=== PATIENT | female | born 1955 | race African-American/Black ===

== ENCOUNTER 2018-04-05 20:17 | Emergency (ER) | payer MEDICARE ==
[~2018-04-05] VITALS: Ht 162.6 cm; Wt 115.0 kg
[~2018-04-05 20:17] MED LIST: AMBIEN5 MG PO; AMLODIPINE5 MG OR; COLCRYS0.6 MG PO; DILTIAZEM180 MG OR; FLEXERIL OR; FLEXERIL PO; INDOMETHACIN50 MG PO; KLOR-CON 1010 ME1 OR; LISINOP/HCTZ1 TAB PO; LORTAB5 PO; MELATONIN3 MG PO; MELOXICAM15 MG PO; METFORMIN1000 MG OR; MULTIVITAM10 OR; NABUMETONE750 MG PO; NAPROSYN500 MG PO; NEXIUM40 MG PO; NORVASC10 M1 PO; NORVASC5 M1 PO; NORVASC5 MG PO; OMEPRAZOLE40 MG PO; PRAVACHOL20 MG OR; PRILOSEC40 MG PO; TRANSDERM-SCOP1.5 MG TD
[2018-04-05] MEDS ORDERED: STOMACH PILL (20:53)
[2018-04-05 21:33] LABS: HEMATOCRIT 32.7 % (37.0-47.0); HEMOGLOBIN 11.2 g/dl (12.0-16.0); IMMATURE GRANULOCYTES 0.3 % (0.0-1.0); MEAN CORPUSCULAR HGB 31.2 pG CALC (26.0-32.0); MEAN CORPUSCULAR HGB CONC 34.3 g/L CALC (32.0-36.0); NEUT# 4.49 thou/uL (2.00-7.15); RED BLOOD COUNT 3.59 mill/uL (4.20-5.60); RED CELL DISTRI WIDTH 14.3 % (11.5-15.5)
[2018-04-05 21:35] LABS: MEAN CELL VOLUME 91.1 fL CALC (80.0-100.0)
[2018-04-05 21:44] LABS: ALKALINE PHOSPHATASE 91 u/l (38-126); AMYLASE 84 u/l (30-110); ANION GAP 11 (6-22 (CALC)); BILIRUBIN, TOTAL 0.4 mg/dL (0.0-1.4); BUN 20 mg/dL (8-23); BUN/CREATININE RATIO 21 (12-20 (CALC)); CARBON DIOXIDE 28 mmol/l (22-30); CHLORIDE 105 mmol/l (95-108); GFR 56 ML/MIN (>=60 (CALC)); GFR FOR AFR.AMER. > 60 ML/MIN (>=60 (CALC)); LIPASE 273 u/l (23-300); POTASSIUM 4.4 mmol/l (3.5-5.1); SGOT/AST 40 u/l (9-36); SGPT/ALT 25 u/l (11-66); SODIUM 140 mmol/l (137-146); TOTAL PROTEIN 7.6 g/dL (6.3-8.2)
[2018-04-05 21:56] LABS: MYOGLOBIN 35 ng/mL (0 - 62)
[2018-04-05 21:56] LABS: URINE BILIRUBIN - DIPSTICK NEGATIVE (NEGATIVE); URINE BLOOD DIPSTICK MODERATE (NEGATIVE); URINE COLOR YELLOW; URINE GLUCOSE - DIPSTICK NEGATIVE (NEGATIVE); URINE KETONE NEGATIVE (NEGATIVE); URINE NITRITE - DIPSTICK NEGATIVE (Negative); URINE PROTEIN - DIPSTICK NEGATIVE (NEG-TRACE); URINE SPECIFIC GRAVITY 1.025; URINE UROBILINOGEN - DIPSTICK 0.2 E.U./dL (0.2)
[2018-04-05 22:02] LABS: URINE CLARITY SL CLOUDY; URINE LEUK ESTERASE MODERATE (NEGATIVE); URINE SQUAMOUS EPITHELIAL CELL MODERATE EPI/hpf (0-FEW)
[2018-04-05 22:03] LABS: URINE BACTERIA MODERATE hpf
[2018-04-05] MEDS ORDERED: BACTRIM DS1 TAB PO (23:05)
[2018-04-05] MEDS ORDERED: ZOFRAN ODT4 MG PO (23:05)
[2018-04-05] MEDS ORDERED: ULTRAM50 M1 PO (23:05)
[2018-04-05 23:19] VITALS: BP 152/60
== END 2018-04-05 23:19 | disposition home or self-care (01) ==
LOC: ED 20:17
PROVIDERS: Emergency Medicine
DX: K52.9 Noninfective gastroenteritis and colitis, unspecified (principal); R10.9 Unspecified abdominal pain; N39.0 Urinary tract infection, site not specified; R11.2 Nausea with vomiting, unspecified; I10 Essential (primary) hypertension
CPT/HCPCS: Q9967; S0164

== ENCOUNTER 2019-02-10 01:37 | Emergency (ER) | payer MEDICARE ==
[~2019-02-10] VITALS: Ht 162.6 cm; Wt 114.0 kg
[~2019-02-10 01:37] MED LIST changes: +BACTRIM DS1 TAB PO; +STOMACH PILL; +ULTRAM50 M1 PO; +ZOFRAN ODT4 MG PO
[2019-02-10] MEDS ORDERED: TORADOL PO (04:27)
[2019-02-10 04:45] VITALS: BP 134/68
== END 2019-02-10 04:45 | disposition home or self-care (01) ==
LOC: ED 01:37
DX: S09.90XA Unspecified injury of head, initial encounter (principal); S16.1XXA Strain of muscle, fascia and tendon at neck level, initial encounter; S40.011A Contusion of right shoulder, initial encounter; S50.11XA Contusion of right forearm, initial encounter; S60.221A Contusion of right hand, initial encounter; W01.0XXA Fall on same level from slipping, tripping and stumbling without subsequent striking against object, initial encounter; Y93.01 Activity, walking, marching and hiking; Y92.009 Unspecified place in unspecified non-institutional (private) residence as the place of occurrence of the external cause